=== PATIENT | male | born 1955 | race Caucasian/White ===

== ENCOUNTER 2022-08-23 12:01 | Inpatient (IN) | payer BC ==
[2022-08-23] MEDS ORDERED: Aspirin Chewable 81 MG TAB ONE ×2 (12:35)
[2022-08-23] MEDS ORDERED: Nitroglycerin 0.4 MG TAB 1 EACH ONE (12:36)
[2022-08-23] MEDS ORDERED: Amiodarone 150 MG/3 ML VIAL ONE (12:43)
[2022-08-23] MEDS ORDERED: Amiodarone In Dextrose 200 ML ONE (12:43)
[2022-08-23 12:47] LABS: #Basophils 0.1 10x3/uL (0.0-0.2); #Eosinphils 0.2 10x3/uL (0.0-0.5); #Monocytes 1.3 10x3/uL (0.0-1.1); #Neutrophils 9.1 10x3/uL (1.5-8.4); %Basophils 0.7 % (0.0-2.0); %Eosinophils 1.3 % (0.0-6.0); %Lymphocytes 10.6 % (18.0-47.0); %Monocytes 10.5 % (0.0-10.0); %Neutrophils 76.5 % (40.0-75.0); Hemoglobin 13.7 g/dL (13.5-17.5); Mean Corpuscular HGB CONC 34.1 g/dL (32.0-36.0); Mean Corpuscular Volume 85.2 fl (81.2-95.1); Mean Platelet Volume 9.6 fl (7.4-10.4); Platelet Count 409 10x3/uL (150-450); RBC Distribution Width 12.3 % (11.5-14.5); Red Blood Cell (RBC) Count 4.72 10x6/uL (4.32-5.72); White Blood Cell (WBC) Count 11.9 10x3/uL (3.5-10.5)
[2022-08-23 12:58] LABS: ALT (SGPT) 33 U/L (8-55); AST (SGOT) 16 U/L (5-34); Albumin 3.6 g/dL (3.4-4.8); Alkaline Phosphatase 95 U/L (40-110); Anion Gap 17 mmol/L (10-20); BUN (Urea Nitrogen) 20 mg/dL (8.4-25.7); Bilirubin, Total 0.7 mg/dL (0.2-1.2); Calc. Creatinine Clearance 0 mL/min (70-130); Calcium 8.9 mg/dL (7.8-10.44); Carbon Dioxide 15 mmol/L (23-31); Chloride 102 mmol/L (98-107); Estimated GFR 68; Globulin 3.6 g/dL (2.4-3.5); Glucose 172 mg/dL (80-115); Lipase 40 U/L (8-78); Potassium 4.1 mmol/L (3.5-5.1); Protein, Total 7.2 g/dL (5.8-8.1); Sodium 130 mmol/L (136-145)
[2022-08-23] MEDS ORDERED: Amiodarone 150 MG, Admixture Fee 1 EACH in Dextrose 5% in Water 100 ML IVPB SCH (13:00)
[2022-08-23 13:09] LABS: INR-International Normal Ratio 1.1; PTT 26.8 sec (22.0-33.0); Prothrombin Time 11.9 sec (9.5-12.1)
[2022-08-23 13:12] LABS: Magnesium 2.2 mg/dL (1.6-2.6)
[2022-08-23 13:20] LABS: CKMB 1.2 ng/mL (0-6.6)
[2022-08-23] MEDS ORDERED: Senokot S 8.6-50 MG TAB PO PRN (16:25)
[2022-08-23] MEDS ORDERED: HYDROcodone/Acetaminophen 5/325 mg Tablet PO PRN (16:25)
[2022-08-23] MEDS ORDERED: Dextrose 50% Abboject 50 ML SYRINGE SLOW IVP PRN (16:58)
[2022-08-23] MEDS ORDERED: Dextrose 5% in Water 1,000 ML IV PRN (16:58)
[2022-08-23] MEDS ORDERED: Carvedilol 12.5 MG TAB PO SCH ×2 (18:00→19:00)
[2022-08-23] MEDS: Amiodarone In Dextrose 360 MG in Premix Bag 1 BAG IVPB SCH (18:51)
[2022-08-23 19:33] LABS: Critical Call Chem Troponin I RESULT DECREASING; Troponin I 0.528 ng/mL (< 0.028)
[2022-08-23 19:50] LABS: SARS-CoV-2 NAA Rapid Test Not Detected (NotDetected)
[2022-08-23] MEDS: Atorvastatin Calcium 40 MG TAB PO SCH ×2 (20:42→21:04)
[2022-08-23] MEDS: Colchicine 0.6 MG TAB PO SCH (20:42)
[2022-08-23] MEDS: TICAGRELOR 90 MG TABLET PO SCH (20:42)
[2022-08-23] MEDS: Acetaminophen 325 MG TAB PO PRN (20:54)
[2022-08-23] MEDS ORDERED: Rosuvastatin 10 MG TAB PO SCH (22:15)
[2022-08-23] MEDS ORDERED: Melatonin 3 MG TAB PO SCH (23:00)
[2022-08-24] MEDS: Acetaminophen 325 MG TAB PO PRN ×3 (00:55→20:19)
[2022-08-24] MEDS: Ondansetron PF 4 MG/2 ML Vial IVP PRN ×2 (01:56→21:03)
[2022-08-24 04:26] LABS: #Basophils 0.1 10x3/uL (0.0-0.2); #Eosinphils 0.1 10x3/uL (0.0-0.5); #Monocytes 1.4 10x3/uL (0.0-1.1); #Neutrophils 8.6 10x3/uL (1.5-8.4); %Basophils 0.7 % (0.0-2.0); %Eosinophils 0.8 % (0.0-6.0); %Lymphocytes 13.7 % (18.0-47.0); %Monocytes 11.9 % (0.0-10.0); %Neutrophils 72.6 % (40.0-75.0); Hemoglobin 13.5 g/dL (13.5-17.5); Mean Corpuscular HGB CONC 34.3 g/dL (32.0-36.0); Mean Corpuscular Hemoglobin 29.1 pg (27.0-33.0); Mean Corpuscular Volume 84.9 fl (81.2-95.1); Mean Platelet Volume 9.4 fl (7.4-10.4); Platelet Count 376 10x3/uL (150-450); RBC Distribution Width 12.5 % (11.5-14.5); Red Blood Cell (RBC) Count 4.64 10x6/uL (4.32-5.72); White Blood Cell (WBC) Count 11.9 10x3/uL (3.5-10.5)
[2022-08-24 04:42] LABS: Anion Gap 19 mmol/L (10-20); BUN (Urea Nitrogen) 19 mg/dL (8.4-25.7); Calc. Creatinine Clearance 104 mL/min (70-130); Calcium 9.1 mg/dL (7.8-10.44); Carbon Dioxide 13 mmol/L (23-31); Chloride 106 mmol/L (98-107); Estimated GFR 72; Glucose 163 mg/dL (80-115); Magnesium 2.3 mg/dL (1.6-2.6); Potassium 4.6 mmol/L (3.5-5.1); Sodium 133 mmol/L (136-145)
[2022-08-24] MEDS: Amiodarone In Dextrose 360 MG in Premix Bag 1 BAG IVPB SCH (06:30)
[2022-08-24] MEDS: Amiodarone 200 MG TAB PO SCH ×3 (06:30→20:21)
[2022-08-24] MEDS ORDERED: Amiodarone 200 MG TAB PO SCH (07:00)
[2022-08-24] MEDS ORDERED: Carvedilol 12.5 MG TAB PO SCH (08:00)
[2022-08-24] MEDS: Empagliflozin 10 MG TAB PO SCH (08:02)
[2022-08-24] MEDS: TICAGRELOR 90 MG TABLET PO SCH (08:03)
[2022-08-24] MEDS: Aspirin 81 mg Enteric Coated Tablet PO SCH (08:04)
[2022-08-24] MEDS: Colchicine 0.6 MG TAB PO SCH ×2 (08:04→20:21)
[2022-08-24] MEDS ORDERED: Enoxaparin Sodium 120 MG/0.8 ML SYRINGE SC SCH (09:00)
[2022-08-24 11:44] VITALS: BMI 34.2
[2022-08-24] MEDS: HumaLOG 300 UNITS/3 ML VIAL SC PRN (11:46)
[2022-08-24] MEDS: Carvedilol 25 MG TAB PO SCH (16:25)
[2022-08-24] MEDS ORDERED: Clopidogrel Bisulfate 75 MG TAB PO SCH (19:00)
[2022-08-24] MEDS: Rosuvastatin 10 MG TAB PO SCH (20:20)
[2022-08-24] MEDS: Apixaban 5 MG TAB PO SCH (20:21)
[2022-08-25] MEDS: Clopidogrel Bisulfate 75 MG TAB PO SCH (07:58)
[2022-08-25] MEDS: Colchicine 0.6 MG TAB PO SCH ×2 (07:58→20:19)
[2022-08-25] MEDS: Empagliflozin 10 MG TAB PO SCH (07:58)
[2022-08-25] MEDS: Apixaban 5 MG TAB PO SCH ×2 (07:58→20:19)
[2022-08-25] MEDS: Carvedilol 25 MG TAB PO SCH ×2 (07:59→16:30)
[2022-08-25] MEDS: Aspirin 81 mg Enteric Coated Tablet PO SCH (07:59)
[2022-08-25] MEDS: Amiodarone 200 MG TAB PO SCH ×3 (07:59→20:19)
[2022-08-25] MEDS ORDERED: Metoprolol Tartrate 5 MG/5 ML VIAL IVP PRN (11:36)
[2022-08-25] MEDS: HumaLOG 300 UNITS/3 ML VIAL SC PRN (11:48)
[2022-08-25] MEDS ORDERED: Metoprolol Tartrate 5 MG/5 ML VIAL IVP SCH (12:00)
[2022-08-25] MEDS: Ondansetron PF 4 MG/2 ML Vial IVP PRN (20:03)
[2022-08-25] MEDS: Rosuvastatin 10 MG TAB PO SCH (20:17)
[2022-08-25] MEDS: Acetaminophen 325 MG TAB PO PRN (20:18)
[2022-08-25] MEDS: Valsartan 80 MG TAB PO SCH (20:19)
[2022-08-26 04:28] LABS: #Basophils 0.1 10x3/uL (0.0-0.2); #Eosinphils 0.2 10x3/uL (0.0-0.5); #Monocytes 1.1 10x3/uL (0.0-1.1); #Neutrophils 5.5 10x3/uL (1.5-8.4); %Basophils 1.2 % (0.0-2.0); %Eosinophils 2.6 % (0.0-6.0); %Lymphocytes 18.2 % (18.0-47.0); %Monocytes 12.7 % (0.0-10.0); %Neutrophils 64.8 % (40.0-75.0); Mean Corpuscular HGB CONC 34.4 g/dL (32.0-36.0); Mean Corpuscular Hemoglobin 29.1 pg (27.0-33.0); Mean Corpuscular Volume 84.6 fl (81.2-95.1); Mean Platelet Volume 9.6 fl (7.4-10.4); Platelet Count 351 10x3/uL (150-450); RBC Distribution Width 12.5 % (11.5-14.5); Red Blood Cell (RBC) Count 4.47 10x6/uL (4.32-5.72); White Blood Cell (WBC) Count 8.5 10x3/uL (3.5-10.5)
[2022-08-26 05:14] LABS: Anion Gap 17 mmol/L (10-20); BUN (Urea Nitrogen) 19 mg/dL (8.4-25.7); Calc. Creatinine Clearance 111 mL/min (70-130); Calcium 8.6 mg/dL (7.8-10.44); Carbon Dioxide 17 mmol/L (23-31); Chloride 106 mmol/L (98-107); Estimated GFR 83; Glucose 106 mg/dL (80-115); Potassium 4.3 mmol/L (3.5-5.1); Sodium 136 mmol/L (136-145)
[2022-08-26] MEDS: Apixaban 5 MG TAB PO SCH ×2 (08:09→21:30)
[2022-08-26] MEDS: Empagliflozin 10 MG TAB PO SCH (08:09)
[2022-08-26] MEDS: Colchicine 0.6 MG TAB PO SCH ×2 (08:09→21:35)
[2022-08-26] MEDS: Clopidogrel Bisulfate 75 MG TAB PO SCH (08:09)
[2022-08-26] MEDS: Carvedilol 25 MG TAB PO SCH ×2 (08:10→17:37)
[2022-08-26] MEDS: Amiodarone 200 MG TAB PO SCH ×3 (08:10→21:36)
[2022-08-26] MEDS: Aspirin 81 mg Enteric Coated Tablet PO SCH (08:10)
[2022-08-26] MEDS: HumaLOG 300 UNITS/3 ML VIAL SC PRN ×2 (11:23→21:33)
[2022-08-26] MEDS: Valsartan 80 MG TAB PO SCH (11:25)
[2022-08-26] MEDS: Ondansetron PF 4 MG/2 ML Vial IVP PRN (21:30)
[2022-08-26] MEDS: Rosuvastatin 10 MG TAB PO SCH (21:30)
[2022-08-27] MEDS: Valsartan 80 MG TAB PO SCH (03:19)
[2022-08-27 05:58] LABS: #Basophils 0.1 10x3/uL (0.0-0.2); #Eosinphils 0.3 10x3/uL (0.0-0.5); #Neutrophils 4.8 10x3/uL (1.5-8.4); %Basophils 1.2 % (0.0-2.0); %Eosinophils 3.4 % (0.0-6.0); %Monocytes 13.4 % (0.0-10.0); %Neutrophils 63.7 % (40.0-75.0); Hemoglobin 12.9 g/dL (13.5-17.5); Mean Corpuscular HGB CONC 34.6 g/dL (32.0-36.0); Mean Corpuscular Hemoglobin 28.9 pg (27.0-33.0); Mean Corpuscular Volume 83.6 fl (81.2-95.1); Mean Platelet Volume 9.4 fl (7.4-10.4); Platelet Count 325 10x3/uL (150-450); RBC Distribution Width 12.6 % (11.5-14.5); Red Blood Cell (RBC) Count 4.46 10x6/uL (4.32-5.72); White Blood Cell (WBC) Count 7.5 10x3/uL (3.5-10.5)
[2022-08-27 06:10] LABS: Anion Gap 15 mmol/L (10-20); BUN (Urea Nitrogen) 21 mg/dL (8.4-25.7); Calc. Creatinine Clearance 116 mL/min (70-130); Calcium 8.8 mg/dL (7.8-10.44); Carbon Dioxide 18 mmol/L (23-31); Chloride 106 mmol/L (98-107); Estimated GFR 87; Glucose 121 mg/dL (80-115); Potassium 4.2 mmol/L (3.5-5.1); Sodium 135 mmol/L (136-145)
[2022-08-27 08:22] VITALS: BP 130/75; TEMP 98.2
[2022-08-27] MEDS: Colchicine 0.6 MG TAB PO SCH (08:48)
[2022-08-27] MEDS: Aspirin 81 mg Enteric Coated Tablet PO SCH (08:49)
[2022-08-27] MEDS: Empagliflozin 10 MG TAB PO SCH (08:49)
[2022-08-27] MEDS: Amiodarone 200 MG TAB PO SCH (08:49)
[2022-08-27] MEDS: Carvedilol 25 MG TAB PO SCH (08:49)
[2022-08-27] MEDS: Apixaban 5 MG TAB PO SCH (08:49)
[2022-08-27] MEDS: Clopidogrel Bisulfate 75 MG TAB PO SCH (08:49)
[2022-08-27] MEDS ORDERED: Spironolactone 25 MG TAB PO SCH (09:00)
[2022-08-28] MEDS ORDERED: Spironolactone 25 MG TAB PO SCH (08:00)
== END 2022-08-27 11:57 | disposition home or self-care (01) | DRG 281 ==
LOC: CSHERS 12:01 → CSHICU 16:13 → CSHTELE 08-26 16:59
PROVIDERS: ADMIT Family Medicine; ATTEND Family Medicine
DX: I48.92 Unspecified atrial flutter (principal); I21.09 ST elevation (STEMI) myocardial infarction involving other coronary artery of anterior wall; I24.1 Dressler's syndrome; I31.9 Disease of pericardium, unspecified; Z95.5 Presence of coronary angioplasty implant and graft; Z20.822 Contact with and (suspected) exposure to COVID-19; I95.9 Hypotension, unspecified; I25.5 Ischemic cardiomyopathy; E66.9 Obesity, unspecified; E78.5 Hyperlipidemia, unspecified; E11.9 Type 2 diabetes mellitus without complications; I25.10 Atherosclerotic heart disease of native coronary artery without angina pectoris; I10 Essential (primary) hypertension; I48.91 Unspecified atrial fibrillation; Z79.84 Long term (current) use of oral hypoglycemic drugs; Z79.899 Other long term (current) drug therapy; Z79.82 Long term (current) use of aspirin; Z82.49 Family history of ischemic heart disease and other diseases of the circulatory system; Z90.49 Acquired absence of other specified parts of digestive tract; Z68.33 Body mass index [BMI] 33.0-33.9, adult
CPT/HCPCS: 36415; 36416; 71045; 80048; 80053; 82553; 83605; 83690; 83735; 83880; 84443; 84484; 85025; 85610; 85730; 86140; 93005; 94760; 96365; 96372; J0282; J1650; J1815; J2405; J7070; U0002